=== PATIENT | female | born 1950 | race American Indian/Alaskan Native ===

== ENCOUNTER 2017-06-15 10:47 | Emergency (ER) | payer MEDICARE ==
[2017-06-15 10:54] VITALS: BMI 37.8
--- NOTE | 2017-06-15 11:16 | ED PDOC ---
HPI: General Adult Time Seen by Provider: 06/15/17 10:54 History Per: Patient, Family History/Exam Limitations: no limitations Onset/Duration Of Symptoms: Days (x since this morning) Current Symptoms Are (Timing): Still Present Additional Complaint(s): 67-year-old female, with a history of diabetes, hypertension and seizures, presents to ED with right-sided chest pain and right breast pain since this morning. Patient has had non-productive cough over the past 2 days. Denies fever , shortness of breath, abdominal pain. No injury or trauma. Family states patient had seizure this weekend. No injury or fall. PMD: Provider TBD Past Medical History Reviewed: Historical Data, Nursing Documentation, Vital Signs Vital Signs: Last Vital Signs Temp 98.7 F 06/15/17 10:54 Pulse 90 06/15/17 10:54 Resp 16 06/15/17 10:54 BP 161/114 H 06/15/17 10:54 Pulse Ox 96 06/15/17 11:26 - Medical History PMH: Diabetes, HTN, Hypercholesterolemia, Seizures Other PMH: CVA with right-sided weakness - Surgical History Surgical History: Coronary Stent - Family History Family History: States: Unknown Family Hx - Immunization History Hx Tetanus Toxoid Vaccination: No Hx Influenza Vaccination: No Hx Pneumococcal Vaccination: No - Home Medications Home Medications: Ambulatory Orders Medication Instructions Recorded Aspirin [Ecotrin] 325 mg PO DAILY 07/12/16 Bisoprolol/HCTZ [Ziac 5 MG-6.25 MG] 1 tab PO DAILY 07/12/16 Carbamazepine 200 mg PO BID 07/12/16 Losartan [Cozaar] 50 mg PO DAILY 07/12/16 MetFORMIN [glucOPHAGE] 1,000 mg PO BID 07/12/16 Omeprazole 20 mg PO DAILY 07/12/16 Sertraline HCl 50 mg PO DAILY 07/12/16 Topiramate [Topamax] 200 mg PO BID 07/12/16 cloNIDine [clonidine HCl] 0.1 mg PO BID 07/12/16 Ergocalciferol (Vitamin D2) 10,000 unit PO QWK 10/06/16 [Vitamin D2] Polyethylene Glycol 3350 [Miralax] 17 gm PO DAILY #85 gm 12/19/16 Naproxen [Naprosyn] 500 mg PO Q12H #20 tab 06/15/17 - Allergies Allergies/Adverse Reactions: Allergies Allergy/AdvReac Type Severity Reaction Status Date / Time No Known Allergies Allergy Verified 10/06/16 16:45 Review of Systems ROS Statement: Except As Marked, All Systems Reviewed And Found Negative Constitutional: Negative for: Fever Cardiovascular: Positive for: Chest Pain (Right-sided), Other (right side breast pain) Respiratory: Positive for: Cough (Non-productive). 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 (+) Right-sided lateral and anterior chest wall tenderness. Right Breast: (+) right breast tendenress, (-) masses, (-) rashes, ( -) discharge ) Respiratory: Positive for: Normal Breath Sounds (Equal breath sounds b/l) Gastrointestinal/Abdominal: Positive for: Normal Exam, Soft. Negative for: Tenderness Extremity: Negative for: Tenderness, Calf Tenderness Neurologic/Psych: Positive for: Alert, Oriented (x 3) - Laboratory Results Result Diagrams: 06/15/17 12:08 06/15/17 12:08 - ECG O2 Sat by Pulse Oximetry: 96 (RA) Pulse Ox Interpretation: Normal Medical Decision Making Medical Decision Making: Time 11:06 Plan: - CMP - cbc (with differentials) - CXR Scribe Attestation: Documented by Jonathan Zepeda, acting as a scribe for Nikolay Dickinson MD Provider Scribe Attestation: All medical record entries made by the Scribe were at my direction and personally dictated by me. I have reviewed the chart and agree that the record accurately reflects my personal performance of the history, physical exam, medical decision making, and the department course for this patient. I have also personally directed, reviewed, and agree with the discharge instructions and disposition. Disposition - Clinical Impression Clinical Impression: Chest wall pain - Patient ED Disposition Is Patient to be Admitted: No Counseled Patient/Family Regarding: Studies Performed, Diagnosis, Need For Followup, Rx Given - Disposition Referrals: [facility] [Outside] Disposition: Routine/Home Disposition Time: 14:00 Condition: FAIR Prescriptions: Naproxen [Naprosyn] 500 mg PO Q12H #20 tab Instructions: Costochondritis
[2017-06-15 12:14] LABS: BASO % 0.4 % (0.0-2.0); EOS % 0.7 % (0.0-4.0); HEMOGLOBIN 14.7 g/dL (12.0-16.0); LYMPH # 1.3 K/uL (1.0-4.3); LYMPH % 18.8 % (20.0-40.0); MEAN CELL VOLUME 93.5 fl (81.0-99.0); MEAN CORPUSCULAR HEMOGLOBIN 31.1 pg (27.0-31.0); MEAN CORPUSCULAR HGB CONC 33.2 g/dL (33.0-37.0); MEAN PLATELET VOLUME 7.6 fl (7.2-11.7); MONO # 0.3 K/uL (0.0-0.8); MONO % 4.8 % (0.0-10.0); NEUT # 5.1 K/uL (1.8-7.0); NEUT % 75.3 % (50.0-75.0); NRBC % 0.2 % (0.0-0.0); RBC 4.72 Mil/uL (3.80-5.20); RED CELL DISTRIBUTION WIDTH 14.4 % (11.5-14.5); WHITE BLOOD COUNT 6.8 K/uL (4.8-10.8)
[2017-06-15 12:24] LABS: ALB/GLOB RATIO 1.1 (1.0-2.1); ALT/SGPT 47 U/L (9-52); AST/SGOT 28 U/L (14-36); BLOOD UREA NITROGEN 8 mg/dl (7-17); CALCIUM 9.1 mg/dL (8.4-10.2); GFR AFRICAN-AMERICAN > 60; GFR NON-AFRICAN AMERICAN > 60
[2017-06-15] MEDS ORDERED: Potassium Chloride 20 mEq ER Tab PO ONE ×2 (12:33→13:59)
--- NOTE | 2017-06-15 13:39 | RAD ---
HISTORY: Right chest pain COMPARISON: No prior. TECHNIQUE: Chest PA and lateral FINDINGS: LUNGS: No active pulmonary disease. PLEURA: No significant pleural effusion identified. No pneumothorax apparent. CARDIOVASCULAR: Atherosclerotic aortic calcifications. Cardiomediastinal silhouette limits. OSSEOUS STRUCTURES: Degenerative changes. VISUALIZED UPPER ABDOMEN: Normal. OTHER FINDINGS: None. IMPRESSION: No active disease.
[2017-06-15 14:15] VITALS: BP 146/86; PULSE 88; RESP 17; TEMP 97.8; O2SAT 100
== END 2017-06-15 14:14 | disposition home or self-care (01) ==
LOC: H.ER 10:47
DX: R07.89 Other chest pain (principal); E11.9 Type 2 diabetes mellitus without complications; E78.00 Pure hypercholesterolemia, unspecified; I10 Essential (primary) hypertension; R56.9 Unspecified convulsions; Z79.82 Long term (current) use of aspirin; Z79.84 Long term (current) use of oral hypoglycemic drugs; Z95.5 Presence of coronary angioplasty implant and graft